=== PATIENT | male | born 1985 | race Caucasian/White ===

== ENCOUNTER 2016-09-18 08:51 | Inpatient (IN) | payer OTHER ==
[2016-09-18 10:30] VITALS: BMI 26.5
--- NOTE | 2016-09-18 13:57 | HP ---
COWS - Scale Resting Pulse: 1= [place] 81-100 Sweatin= Chills/Flushing Restless Observation: 3= Extraneous Movement Pupil Size: 2= Moderately Dilated Bone or Joint Aches: 4=Acute Joint/Muscle Pain Runny Nose/ Eye Tearin= Nasal Congestion GI Upset > 30mins: 2= Nausea/Diarrhea Tremor Observation: 1= Tremor [place], Not Seen Yawning Observation: 1= 1-2x During Session Anxiety or Irritability: 2=Irritable/Anxious Goose Flesh Skin: 0=Smooth Skin COWS Score: 18 CIWA Score - CIWA Score Nausea/Vomitin (NAUSEA/DIARHEA) Muscle Tremors: 3 Anxiety: 4-Mod. Anxious/Guarded Agitation: 4-Moderately Restless Paroxysmal Sweats: 1-Minimal Palms Moist Orientation: 0-Oriented Tacttile Disturbances: 3-Moderate Itch/Numb/Burn Auditory Disturbances: 0-None Visual Disturbances: 0-None Headache: 0-None Present CIWA-Ar Total Score: 18 Admission ROS S - HPI Chief Complaint: DETOX TX FOR HEROIN AND ALCOHOL DEPENDENCE Allergies/Adverse Reactions: Allergies Allergy/AdvReac Type Severity Reaction Status Date / Time No Known Allergies Allergy Verified 09/18/16 10:55 History of Present Illness: 31 Y/O [facility] WITH A HX OF HEROIN,COCAINE AND ALCOHOL DEPENDENCE SEEKING DETOX TX. ALSO STATES XANAX HABIT 3X/WEEK BUT TOXICOLY NEGATIVE FOR BENZO TODAY. - Ebola screening Have you traveled outside of the country in the last 21 days: No Have you had contact with anyone from an Ebola affected area: No Have you been sick,other than usual withdrawal symptoms: No Do you have a fever: No - Review of Systems Constitutional: Chills, Night Sweats EENT: reports: No Symptoms Reported Respiratory: reports: No Symptoms reported Cardiac: reports: No Symptoms Reported GI: reports: Diarrhea, Nausea, Indigestion, Abdominal cramping : reports: Dysuria Musculoskeletal: reports: Back Pain, Joint Pain, Muscle Pain Integumentary: reports: Bruising (IVD INJ SITE LEFT ELBOW) Neuro: reports: Headache, Numbness, Tingling, Tremors, Unsteady Gait Endocrine: reports: No Symptoms Reported Hematology: reports: No Symptoms Reported Psychiatric: reports: Orientated x3, Anxious, Depressed Other Systems: Reviewed and Negative Patient History - Patient Medical History Hx Anemia: No Hx Asthma: No Hx Chronic Obstructive Pulmonary Disease (COPD): No Hx Cancer: No Hx Cardiac Disorders: No Hx Congestive Heart Failure: No Hx Hypertension: No Hx Hypercholesterolemia: No Hx Pacemaker: No HX Cerebrovascular Accident: No Hx Seizures: No Hx Dementia: No Hx Diabetes: No Hx Gastrointestinal Disorders: No Hx Liver Disease: No Hx Genitourinary Disorders: No Hx Sexually Transmitted Disorders: No Hx Renal Disease (ESRD): No Hx Thyroid Disease: No Hx Human Immunodeficiency Virus (HIV): No (NEGATIVE HX) Hx Hepatitis C: No Hx Depression: Yes (ON MED) Hx Suicide Attempt: No (DENIES) Hx Bipolar Disorder: No Hx Schizophrenia: No - Patient Surgical History Past Surgical History: No Hx Neurologic Surgery: No Hx Cataract Extraction: No Hx Cardiac Surgery: No Hx Lung Surgery: No Hx Breast Surgery: No Hx Breast Biopsy: No Hx Abdominal Surgery: No Hx Appendectomy: No Hx Cholecystectomy: No Hx Genitourinary Surgery: No Hx Orthopedic Surgery: No Anesthesia Reaction: No - PPD History Previous Implant?: Yes Documented Results: Negative w/proof Implanted On Prior [facility] Admission?: Yes Date: 10/08/14 Results: 0mm PPD to be Administered?: Yes - Reproductive History Patient is a Female of Child Bearing Age (11 -55 yrs old): No (MALE) Patient : (N/A) - Smoking Cessation Smoking history: Current every day smoker Have you smoked in the past 12 months: Yes Aproximately how many cigarettes per day: 10 Cigars Per Day: 0 Hx Chewing Tobacco Use: No Initiated information on smoking cessation: Yes 'Breaking Loose' booklet given: 09/18/16 - Substance & Tx. History Hx Alcohol Use: Yes (BEER/WHISKEY) Hx Substance Use: Yes (HEROIN/COCAINE) Substance Use Type: Alcohol, Cocaine, Heroin, Tranquilizers Hx Substance Use Treatment: Yes (LAST TX AT [facility]) - Substances Abused Alcohol Route: Oral Frequency: Daily Amount used: kera elder(1 pint)/beer-6-12 24 oz cans) Age of first use: 12 Date of Last Use: 09/18/16 Heroin Route: Injection Frequency: Daily Amount used: 3-10 bags Age of first use: 23 Date of Last Use: 09/18/16 Cocaine Route: Injection Frequency: Daily Amount used: $30-100 Age of first use: 20 Date of Last Use: 09/17/16 Family Disease History - Family Disease History Family Disease History: Other: Grandparent (GF WAN ADDICTED TO ETOH) Admission Physical Exam [facility] - Vital Signs Vital Signs: Vital Signs - 24 hr 09/18/16 10:28 Temperature 97.6 F Pulse Rate 81 Respiratory 20 Rate Blood Pressure 147/90 - Physical General Appearance: Yes: Moderate Distress, Alcohol on Breath, Intoxicated, Irritable, Anxious HEENTM: Yes: EOMI, MAGGI, Pharynx Normal Respiratory: Yes: Chest Non-Tender, Lungs Clear, Normal Breath Sounds, No Respiratory Distress Neck: Yes: No masses,lesions,Nodules, Supple, Trachea in good position Breast: Yes: Breast Exam Deferred Cardiology: Yes: Regular Rhythm, Regular Rate, S1, S2 Abdominal: Yes: Normal Bowel Sounds, Non Tender, Soft Genitourinary: Yes: Other Back: Yes: Within Normal Limits Musculoskeletal: Yes: full range of Motion, Gait Steady Extremities: Yes: Normal Range of Motion, Non-Tender Neurological: Yes: braided rug maker II-XII NML intact, Fully Oriented, Alert Integumentary: Yes: Dry, Warm, Track [place] (LEFT ELBOW) Lymphatic: Yes: Within Normal Limits - Diagnostic (1) Nicotine dependence Current Visit: Yes Status: Acute Qualifiers: Nicotine product type: cigarettes Substance use status: in withdrawal Qualified Code(s): F17.213 - Nicotine dependence, cigarettes, with withdrawal (2) Opioid dependence with withdrawal Current Visit: Yes Status: Acute (3) Cocaine dependence, uncomplicated Current Visit: Yes Status: Acute (4) Alcohol dependence with uncomplicated withdrawal Current Visit: Yes Status: Acute (5) Multiple abrasions Current Visit: Yes Status: Acute Comment: ON BOTH LOWER EXTREMITIES--SCRATCHES DUE TO MOSQUITO BITES PER PT. Cleared for Admission [facility] - Detox or Rehab [facility] Level of Care: Medically Managed Detox Regimen/Protocol: Methadone/Librium [facility] Breath Alcohol Content Breath Alcohol Content: 0.130 Urine Drug Screen - Results Drug Screen Negative: No Urine Drug Screen Results: YANELIS-Cocaine, OPI-Opiates
[2016-09-18] MEDS ORDERED: ACETAMINOPHEN 325 MG TABLET (FP) PO PRN (14:31)
[2016-09-18] MEDS ORDERED: diphenhydrAMINE HCL 50 MG CAPSULE PO PRN (14:31)
[2016-09-18] MEDS ORDERED: hydrOXYzine PAMOATE 50 MG CAPSULE (FP) PO PRN (14:31)
[2016-09-18] MEDS ORDERED: chlordiazePOXIDE HCL 25 MG CAPSULE PO ONE (14:31)
[2016-09-18] MEDS ORDERED: MAGNESIUM HYDROX 2400MG/30ML ORAL SUSPENSION 30 ML CUP PO PRN (14:31)
[2016-09-18] MEDS ORDERED: MAGNESIUM CITRATE 300 ML BOTTLE PO PRN (14:31)
[2016-09-18] MEDS ORDERED: P-EPHED 60MG/TRIPROLIDI 2.5MG TABLET PO PRN (14:31)
[2016-09-18] MEDS ORDERED: LOPERAMIDE HCL 2 MG CAPSULE PO PRN (14:31)
[2016-09-18] MEDS ORDERED: guaiFENesin/D-METHORPHAN HB 10 ML UNIT-DOSE CUPS PO PRN (14:31)
[2016-09-18] MEDS ORDERED: MENTHOL/PHENOL 1 EACH UD MM PRN (14:31)
[2016-09-18] MEDS ORDERED: MAG HYDROX/AL HYDROX/SIMETH 30 ML UNIT-DOSE CUP PO PRN (14:31)
[2016-09-18] MEDS ORDERED: IBUPROFEN 400 MG TABLET (FP) PO PRN (14:31)
[2016-09-18 16:57] LABS: MCH 28.2 pg (25.7-33.7); MCHC 33.5 g/dl (32.0-35.9); MEAN CELL VOLUME 84.2 fl (80-96); PLATELET COUNT 321 K/MM3 (134-434); RDW 15.9 % (11.9-15.9); WHITE BLOOD COUNT 8.9 K/mm3 (4.0-10.0)
[2016-09-18] MEDS ORDERED: METHADONE HCL 10 MG TABLET (FOR DETOX USE ONLY) PO ONE ×2 (17:00→23:00)
[2016-09-18] MEDS: chlordiazePOXIDE HCL 25 MG CAPSULE PO SCH ×2 (17:05→22:30)
[2016-09-18] MEDS: NICOTINE 14 MG/24 HOURS TOPICAL PATCH TD SCH (17:09)
[2016-09-18 17:12] LABS: ALBUMIN 3.8 g/dl (3.4-5.0); ANION GAP 10 (8-16); BILIRUBIN,TOTAL 0.6 mg/dL (0.2-1.0); CALCIUM 9.1 mg/dL (8.5-10.1); CO2 24 mmol/L (21-32); CREATININE 0.9 mg/dL (0.7-1.3); GLUCOSE,RANDOM 124 mg/dL (74-106); SGOT/AST 27 U/L (15-37); TOT PROT 7.5 g/dl (6.4-8.2)
[2016-09-18 17:17] LABS: ALK PHOS 147 U/L (45-117); SGPT/ALT 111 U/L (12-78)
--- NOTE | 2016-09-18 19:08 | CONSULT ---
[facility] Psychiatric Consult - Data Date of interview: 09/18/16 Admission source: [facility] Identifying data: Readmission to [facility] for this 31 y/o male seeking detox treatment on for heroin,cocaine and alcohol dependence.Patient is single without children,homeless,unemployed and supported on Public Assistance. Substance Abuse History: Discussed in this interview.Mr Cuello confirms this report provide at [facility] on admission. Smoking Cessation. Smoking history: Current every day smoker. Have you smoked in the past 12 months: Yes. Aproximately how many cigarettes per day: 10. Cigars Per Day: 0. Hx Chewing Tobacco Use: No. Initiated information on smoking cessation: Yes. 'Breaking Loose' booklet given: 09/18/16. - Substance & Tx. History. Hx Alcohol Use: Yes (BEER/WHISKEY). Hx Substance Use: Yes (HEROIN/COCAINE). Substance Use Type : Alcohol, Cocaine, Heroin, Tranquilizers. Hx Substance Use Treatment: Yes ( LAST TX AT [facility]). - Substances Abused. Alcohol. Route: Oral. Frequency: Daily. Amount used: kera elder(1 pint)/beer-6-12 24 oz cans). Age of first use: 12. Date of Last Use: 09/18/16. Heroin. Route: Injection. Frequency: Daily. Amount used: 3-10 bags. Age of first use: 23. Date of Last Use: 09/18/16. Cocaine. Route: Injection. Frequency: Daily. Amount used: $30-100. Age of first use: 20. Date of Last Use: 09/17/16 Medical History: Patient endorses good general health. Psychiatric History: Appears to be an unconcerned historian.Clearly in denial of the seriousness of his addictions.Mr Cuello remains vague about past history of OPD care." I used to be on wellbutrin,xanax,lexapro and some other things.They don't work and I stopped taking them.I am fine and,frankly,I don't see the need to go to psychiatrists." Patient denies history of psychiatric hospitalizations or suicide atttempts. Physical/Sexual Abuse/Trauma History: Patient denies. Additional Comment: Urine Drug Screen Results: YANELIS-Cocaine, OPI-Opiates.Noted. Mental Status Exam - Mental Status Exam Alert and Oriented to: Time, Place, Person Cognitive Function: Good Patient Appearance: Well Groomed Mood: Euthymic Affect: Normal Range Patient Behavior: Fatigued, Appropriate, Cooperative Speech Pattern: Clear Voice Loudness: Normal Thought Process: Goal Oriented Thought Disorder: Not Present Hallucinations: Denies Suicidal Ideation: Denies Homicidal Ideation: Denies Insight/Judgement: Poor Sleep: Poorly, Difficulty falling asleep Appetite: Good Muscle strength/Tone: Normal Gait/Station: Normal Psychiatric Findings - Problem List ([place] 1, 2,3) (1) Alcohol dependence with uncomplicated withdrawal Current Visit: Yes Status: Acute (2) Cocaine dependence, uncomplicated Current Visit: Yes Status: Acute (3) Opioid dependence with withdrawal Current Visit: Yes Status: Acute (4) Nicotine dependence Current Visit: Yes Status: Acute Qualifiers: Nicotine product type: cigarettes Substance use status: in withdrawal Qualified Code(s): F17.213 - Nicotine dependence, cigarettes, with withdrawal (5) Drug-induced mood disorder Current Visit: Yes Status: Chronic (6) Insomnia Current Visit: Yes Status: Acute - Initial Treatment Plan Initial Treatment Plan: Psychoeducation.Detoxification.Ambien 10 mg po hs prn.Side effects/benefits discussed with the patient.Consent (verbal) given fr this careplan.Observation.
[2016-09-18 21:14] LABS: URINE APPEARANCE CLEAR; URINE BILIRUBIN NEGATIVE (NEGATIVE); URINE BLOOD NEGATIVE (NEGATIVE); URINE COLOR COLORLESS; URINE GLUCOSE (UA) NEGATIVE (NEGATIVE); URINE KETONE NEGATIVE (NEGATIVE); URINE LEUK ESTERASE NEGATIVE (NEGATIVE); URINE NITRITE NEGATIVE (NEGATIVE); URINE PROTEIN NEGATIVE (NEGATIVE); URINE UROBILINOGEN NEGATIVE mg/dL (0.2-1.0)
[2016-09-18] MEDS: ZOLPIDEM TARTRATE 5 MG TABLET PO PRN (22:30)
[2016-09-18] MEDS: THIAMINE HCL 100 MG TABLET (FP) PO SCH (22:49)
[2016-09-19 02:23] LABS: HIV 1 & 2 AB NEGATIVE; HIV 1 AGp24 NEGATIVE
[2016-09-19] MEDS: chlordiazePOXIDE HCL 25 MG CAPSULE PO SCH ×4 (05:49→22:17)
[2016-09-19] MEDS ORDERED: METHADONE HCL 10 MG TABLET (FOR DETOX USE ONLY) PO SCH (10:00)
[2016-09-19] MEDS: PRENATAL VITAMINS W/ FOLIC ACID TABLET (FP) PO SCH (11:00)
[2016-09-19] MEDS: NICOTINE 14 MG/24 HOURS TOPICAL PATCH TD SCH (11:00)
--- NOTE | 2016-09-19 11:01 | PN ---
[facility] CIWA - CIWA Score Nausea/Vomitin-No Nausea/No Vomiting Muscle Tremors: 4-Moderate,w/Arms Extend Anxiety: 4-Mod. Anxious/Guarded Agitation: 3 Paroxysmal Sweats: 3 Orientation: 0-Oriented Tacttile Disturbances: 0-None Auditory Disturbances: 0-None Visual Disturbances: 0-None Headache: 0-None Present CIWA-Ar Total Score: 14 S COWS - Scale Resting Pulse: 0= [place] 80 or Below Sweatin=Flushed/Facial Moisture Restless Observation: 1= Difficult to Sit Still Pupil Size: 0= Normal to Room Light Bone or Joint Aches: 1= Mild Discomfort Runny Nose/ Eye Tearin= Runny Nose/Eyes GI Upset > 30mins: 2= Nausea/Diarrhea Tremor Observation of Outstretched Hands: 2= Slight Tremor Visible Yawning Observation: 1= 1-2x During Session Anxiety or Irritability: 2=Irritable/Anxious Goose Flesh Skin: 0=Smooth Skin COWS Score: 13 [facility] Progress Note (SOAP) Subjective: Anxiety,tremors,sweating,muscle aches,interrupted sleep,restless Objective: 09/19/16 11:00 Vital Signs - 8 hr 09/19/16 09/19/16 09/19/16 04:18 06:42 09:21 Temperature 96.2 F L 97.7 F Pulse Rate 66 72 Respiratory 18 18 18 Rate Blood Pressure 149/87 142/77 Laboratory Last Values WBC 8.9 K/mm3 (4.0-10.0) D 09/18/16 14:00 RBC 5.16 M/mm3 (4.00-5.60) 09/18/16 14:00 Hgb 14.6 GM/dL (11.7-16.9) 09/18/16 14:00 Hct 43.4 % (35.4-49) 09/18/16 14:00 MCV 84.2 fl (80-96) 09/18/16 14:00 MCH 28.2 pg (25.7-33.7) 09/18/16 14:00 MCHC 33.5 g/dl (32.0-35.9) 09/18/16 14:00 RDW 15.9 % (11.9-15.9) 09/18/16 14:00 Plt Count 321 K/MM3 (134-434) D 09/18/16 14:00 MPV 9.0 fl (7.5-11.1) 09/18/16 14:00 Sodium 140 mmol/L (136-145) 09/18/16 14:00 Potassium 4.3 mmol/L (3.5-5.1) 09/18/16 14:00 Chloride 106 mmol/L (98-107) 09/18/16 14:00 Carbon Dioxide 24 mmol/L (21-32) 09/18/16 14:00 Anion Gap 10 (8-16) 09/18/16 14:00 BUN 5 mg/dL (7-18) L D 09/18/16 14:00 Creatinine 0.9 mg/dL (0.7-1.3) D 09/18/16 14:00 Creat Clearance w eGFR > 60 (>60) 09/18/16 14:00 Random Glucose 124 mg/dL (74-106) H D 09/18/16 14:00 Calcium 9.1 mg/dL (8.5-10.1) 09/18/16 14:00 Total Bilirubin 0.6 mg/dL (0.2-1.0) D 09/18/16 14:00 AST 27 U/L (15-37) D 09/18/16 14:00 ALT 111 U/L (12-78) H D 09/18/16 14:00 Alkaline Phosphatase 147 U/L (45-117) H D 09/18/16 14:00 Total Protein 7.5 g/dl (6.4-8.2) 09/18/16 14:00 Albumin 3.8 g/dl (3.4-5.0) 09/18/16 14:00 Urine Color Colorless 09/18/16 16:58 Urine Appearance Clear 09/18/16 16:58 Urine pH 6.0 (5.0-8.0) 09/18/16 16:58 Ur Specific [place] <= 1.005 (1.005-1.025) 09/18/16 16:58 Urine Protein Negative (NEGATIVE) 09/18/16 16:58 Urine Glucose (UA) Negative (NEGATIVE) 09/18/16 16:58 Urine Ketones Negative (NEGATIVE) 09/18/16 16:58 Urine Blood Negative (NEGATIVE) 09/18/16 16:58 Urine Nitrite Negative (NEGATIVE) 09/18/16 16:58 Urine Bilirubin Negative (NEGATIVE) 09/18/16 16:58 Urine Urobilinogen Negative mg/dL (0.2-1.0) 09/18/16 16:58 Ur Leukocyte Esterase Negative (NEGATIVE) 09/18/16 16:58 HIV 1&2 Antibody Screen Negative 09/18/16 12:00 HIV P24 Antigen Negative 09/18/16 12:00 labs noted Assessment: 09/19/16 11:00 Withdrawal sx. Plan: continue detox
[2016-09-19] MEDS: NICOTINE POLACRILEX 2 MG GUM BC PRN ×4 (11:02→18:59)
[2016-09-19] MEDS: BACITRACIN 0.9 GM PACKET TP SCH (14:05)
[2016-09-19] MEDS: chlordiazePOXIDE HCL 25 MG CAPSULE PO PRN ×2 (14:06→18:59)
--- NOTE | 2016-09-19 15:38 | EKG ---
Test Reason : Blood Pressure : / mmHG Vent. Rate : 086 BPM Atrial Rate : 086 BPM P-R Int : 148 ms QRS Dur : 084 ms QT Int : 358 ms P-R-T Axes : 053 073 042 degrees QTc Int : 428 ms NORMAL SINUS RHYTHM WITH SINUS ARRHYTHMIA NORMAL ECG NO PREVIOUS ECGS AVAILABLE Confirmed by JOSHUA OVERTON, SANDRA ([id number]) on 09/19/2016 3:38:14 PM Referred By: Confirmed By:SANDRA LEWIS MD
[2016-09-19] MEDS: THIAMINE HCL 100 MG TABLET (FP) PO SCH (22:18)
[2016-09-19] MEDS: ZOLPIDEM TARTRATE 5 MG TABLET PO PRN (22:18)
[2016-09-20] MEDS: chlordiazePOXIDE HCL 25 MG CAPSULE PO SCH ×2 (05:30→10:27)
[2016-09-20] MEDS: NICOTINE POLACRILEX 2 MG GUM BC PRN ×3 (06:59→16:50)
[2016-09-20] MEDS: PRENATAL VITAMINS W/ FOLIC ACID TABLET (FP) PO SCH (10:27)
[2016-09-20] MEDS: METHADONE HCL 5 MG TABLET (FOR DETOX USE ONLY) PO SCH (10:27)
[2016-09-20] MEDS: BACITRACIN 0.9 GM PACKET TP SCH (10:27)
[2016-09-20] MEDS: NICOTINE 14 MG/24 HOURS TOPICAL PATCH TD SCH (10:27)
--- NOTE | 2016-09-20 12:05 | PN ---
S CIWA - CIWA Score Nausea/Vomitin Muscle Tremors: 3 Anxiety: 1-Mildly Anxious Agitation: 3 Paroxysmal Sweats: 3 Orientation: 0-Oriented Tacttile Disturbances: 3-Moderate Itch/Numb/Burn Auditory Disturbances: 0-None Visual Disturbances: 1-Very Mild Sensitivity Headache: 0-None Present CIWA-Ar Total Score: 16 [facility] COWS - Scale Resting Pulse: 0= [place] 80 or Below Sweatin= Chills/Flushing Restless Observation: 1= Difficult to Sit Still Pupil Size: 0= Normal to Room Light Bone or Joint Aches: 2= Severe Diffuse Aches Runny Nose/ Eye Tearin= Nasal Congestion GI Upset > 30mins: 2= Nausea/Diarrhea Tremor Observation of Outstretched Hands: 2= Slight Tremor Visible Yawning Observation: 1= 1-2x During Session Anxiety or Irritability: 2=Irritable/Anxious Goose Flesh Skin: 3=Piloerection COWS Score: 15 [facility] Progress Note (SOAP) Subjective: Tremors, Stomach Cramping, Body Aches, Sweating, Diarrhea. Objective: PT. A & O X 3, OBSERVED AMBULATING ON UNIT. NO ACUTE DISTRESS. 09/20/16 12:04 Vital Signs Temperature 96.8 F L 09/20/16 10:46 Pulse Rate 70 09/20/16 10:46 Respiratory Rate 18 09/20/16 10:46 Blood Pressure 145/86 09/20/16 10:46 O2 Sat by Pulse Oximetry (%) Laboratory Tests 09/18/16 09/18/16 09/18/16 12:00 14:00 14:00 WBC 8.9 D RBC 5.16 Hgb 14.6 Hct 43.4 MCV 84.2 MCH 28.2 MCHC 33.5 RDW 15.9 Plt Count 321 D MPV 9.0 Sodium 140 Potassium 4.3 Chloride 106 Carbon Dioxide 24 Anion Gap 10 BUN 5 L D Creatinine 0.9 D Creat Clearance w eGFR > 60 POC Glucometer Random Glucose 124 H D Calcium 9.1 Total Bilirubin 0.6 D AST 27 D ALT 111 H D Alkaline Phosphatase 147 H D Total Protein 7.5 Albumin 3.8 Urine Color Urine Appearance Urine pH Ur Specific [place] Urine Protein Urine Glucose (UA) Urine Ketones Urine Blood Urine Nitrite Urine Bilirubin Urine Urobilinogen Ur Leukocyte Esterase RPR Titer HIV 1&2 Antibody Screen Negative HIV P24 Antigen Negative 09/18/16 09/18/16 09/20/16 14:00 16:58 05:32 WBC RBC Hgb Hct MCV MCH MCHC RDW Plt Count MPV Sodium Potassium Chloride Carbon Dioxide Anion Gap BUN Creatinine Creat Clearance w eGFR POC Glucometer 88 Random Glucose Calcium Total Bilirubin AST ALT Alkaline Phosphatase Total Protein Albumin Urine Color Colorless Urine Appearance Clear Urine pH 6.0 Ur Specific [place] <= 1.005 Urine Protein Negative Urine Glucose (UA) Negative Urine Ketones Negative Urine Blood Negative Urine Nitrite Negative Urine Bilirubin Negative Urine Urobilinogen Negative Ur Leukocyte Esterase Negative RPR Titer Nonreactive HIV 1&2 Antibody Screen HIV P24 Antigen LABS NOTED. Assessment: 09/20/16 12:04 WITHDRAWAL SYMPTOMS. Plan: CONTINUE DETOX.
[2016-09-20] MEDS: chlordiazePOXIDE HCL 25 MG CAPSULE PO PRN (12:32)
[2016-09-20] MEDS: chlordiazePOXIDE 5 MG CAPSULE PO SCH ×2 (16:47→22:15)
[2016-09-20] MEDS: ZOLPIDEM TARTRATE 5 MG TABLET PO PRN (22:15)
[2016-09-20] MEDS: THIAMINE HCL 100 MG TABLET (FP) PO SCH (22:15)
[2016-09-21] MEDS: chlordiazePOXIDE 5 MG CAPSULE PO SCH ×2 (05:30→10:17)
[2016-09-21] MEDS: chlordiazePOXIDE HCL 25 MG CAPSULE PO PRN ×2 (08:36→12:28)
[2016-09-21] MEDS: BACITRACIN 0.9 GM PACKET TP SCH (10:17)
[2016-09-21] MEDS: NICOTINE POLACRILEX 2 MG GUM BC PRN ×3 (10:17→17:32)
[2016-09-21] MEDS: NICOTINE 14 MG/24 HOURS TOPICAL PATCH TD SCH (10:17)
[2016-09-21] MEDS: METHADONE HCL 5 MG TABLET (FOR DETOX USE ONLY) PO SCH (10:17)
[2016-09-21] MEDS: PRENATAL VITAMINS W/ FOLIC ACID TABLET (FP) PO SCH (10:17)
--- NOTE | 2016-09-21 15:01 | PN ---
[facility] Progress Note (SOAP) Subjective: Tremors, Stomach Cramping, Diarrhea, Body Aches, Seating. Objective: PT. A & O X 3, OBSERVED AMBULATING ON UNIT. NO ACUTE DISTRESS. 09/21/16 15:00 Vital Signs Temperature 96.7 F L 09/21/16 13:57 Pulse Rate 66 09/21/16 13:57 Respiratory Rate 18 09/21/16 13:57 Blood Pressure 138/84 09/21/16 13:57 O2 Sat by Pulse Oximetry (%) Laboratory Tests 09/18/16 09/18/16 09/18/16 12:00 14:00 14:00 WBC 8.9 D RBC 5.16 Hgb 14.6 Hct 43.4 MCV 84.2 MCH 28.2 MCHC 33.5 RDW 15.9 Plt Count 321 D MPV 9.0 Sodium 140 Potassium 4.3 Chloride 106 Carbon Dioxide 24 Anion Gap 10 BUN 5 L D Creatinine 0.9 D Creat Clearance w eGFR > 60 POC Glucometer Random Glucose 124 H D Calcium 9.1 Total Bilirubin 0.6 D AST 27 D ALT 111 H D Alkaline Phosphatase 147 H D Total Protein 7.5 Albumin 3.8 Urine Color Urine Appearance Urine pH Ur Specific [place] Urine Protein Urine Glucose (UA) Urine Ketones Urine Blood Urine Nitrite Urine Bilirubin Urine Urobilinogen Ur Leukocyte Esterase RPR Titer HIV 1&2 Antibody Screen Negative HIV P24 Antigen Negative 09/18/16 09/18/16 09/20/16 14:00 16:58 05:32 WBC RBC Hgb Hct MCV MCH MCHC RDW Plt Count MPV Sodium Potassium Chloride Carbon Dioxide Anion Gap BUN Creatinine Creat Clearance w eGFR POC Glucometer 88 Random Glucose Calcium Total Bilirubin AST ALT Alkaline Phosphatase Total Protein Albumin Urine Color Colorless Urine Appearance Clear Urine pH 6.0 Ur Specific [place] <= 1.005 Urine Protein Negative Urine Glucose (UA) Negative Urine Ketones Negative Urine Blood Negative Urine Nitrite Negative Urine Bilirubin Negative Urine Urobilinogen Negative Ur Leukocyte Esterase Negative RPR Titer Nonreactive HIV 1&2 Antibody Screen HIV P24 Antigen LABS NOTED. Assessment: 09/21/16 15:00 WITHDRAWAL SYMPTOMS. Plan: CONTINUE DETOX.
[2016-09-21] MEDS: chlordiazePOXIDE HCL 10 MG CAPSULE PO SCH ×2 (17:32→22:22)
[2016-09-21] MEDS: THIAMINE HCL 100 MG TABLET (FP) PO SCH (22:22)
[2016-09-21] MEDS: ZOLPIDEM TARTRATE 5 MG TABLET PO PRN (22:22)
[2016-09-22] MEDS: chlordiazePOXIDE HCL 10 MG CAPSULE PO SCH ×2 (05:46→10:30)
[2016-09-22] MEDS ORDERED: METHADONE HCL 10 MG TABLET (FOR DETOX USE ONLY) PO SCH (10:00)
[2016-09-22] MEDS: BACITRACIN 0.9 GM PACKET TP SCH (10:30)
[2016-09-22] MEDS: PRENATAL VITAMINS W/ FOLIC ACID TABLET (FP) PO SCH (10:30)
[2016-09-22] MEDS: NICOTINE 14 MG/24 HOURS TOPICAL PATCH TD SCH (10:30)
[2016-09-22] MEDS: NICOTINE POLACRILEX 2 MG GUM BC PRN ×3 (10:30→20:10)
--- NOTE | 2016-09-22 16:10 | PN ---
S Progress Note (SOAP) Subjective: Sweating, anxious, interrupted sleep Objective: 09/22/16 16:09 Last Vital Signs Temp Pulse Resp BP Pulse Ox 97.3 F L 86 18 138/79 09/22/16 14:25 09/22/16 14:25 09/22/16 14:25 09/22/16 14:25 Laboratory Tests 09/18/16 09/18/16 09/18/16 12:00 14:00 14:00 WBC 8.9 D RBC 5.16 Hgb 14.6 Hct 43.4 MCV 84.2 MCH 28.2 MCHC 33.5 RDW 15.9 Plt Count 321 D MPV 9.0 Sodium 140 Potassium 4.3 Chloride 106 Carbon Dioxide 24 Anion Gap 10 BUN 5 L D Creatinine 0.9 D Creat Clearance w eGFR > 60 POC Glucometer Random Glucose 124 H D Calcium 9.1 Total Bilirubin 0.6 D AST 27 D ALT 111 H D Alkaline Phosphatase 147 H D Total Protein 7.5 Albumin 3.8 Urine Color Urine Appearance Urine pH Ur Specific [place] Urine Protein Urine Glucose (UA) Urine Ketones Urine Blood Urine Nitrite Urine Bilirubin Urine Urobilinogen Ur Leukocyte Esterase RPR Titer HIV 1&2 Antibody Screen Negative HIV P24 Antigen Negative 09/18/16 09/18/16 09/20/16 14:00 16:58 05:32 WBC RBC Hgb Hct MCV MCH MCHC RDW Plt Count MPV Sodium Potassium Chloride Carbon Dioxide Anion Gap BUN Creatinine Creat Clearance w eGFR POC Glucometer 88 Random Glucose Calcium Total Bilirubin AST ALT Alkaline Phosphatase Total Protein Albumin Urine Color Colorless Urine Appearance Clear Urine pH 6.0 Ur Specific [place] <= 1.005 Urine Protein Negative Urine Glucose (UA) Negative Urine Ketones Negative Urine Blood Negative Urine Nitrite Negative Urine Bilirubin Negative Urine Urobilinogen Negative Ur Leukocyte Esterase Negative RPR Titer Nonreactive HIV 1&2 Antibody Screen HIV P24 Antigen Labs noted Assessment: 09/22/16 16:10 Withdrawal symptoms Plan: Continue detox Encouraged to drink lots of water
[2016-09-22] MEDS: ZOLPIDEM TARTRATE 5 MG TABLET PO PRN (22:28)
[2016-09-22] MEDS: THIAMINE HCL 100 MG TABLET (FP) PO SCH (22:28)
[2016-09-23] MEDS ORDERED: METHADONE HCL 5 MG TABLET (FOR DETOX USE ONLY) PO SCH (06:00)
[2016-09-23 06:35] VITALS: BP 132/87; PULSE 74; TEMP 96.7
--- NOTE | 2016-09-23 09:04 | DS ---
[facility] Detox Discharge Summary Admission Date: 09/18/16 Discharge Date: 09/23/16 - History Present History: Alcohol Dependence, Cocaine Dependence, Opioid Dependence Pertinent Past History: Multiple abrasion - Physical Exam Results Vital Signs: Vital Signs Temperature 96.7 F L 09/23/16 06:35 Pulse Rate 74 09/23/16 06:35 Respiratory Rate 18 09/23/16 06:35 Blood Pressure 132/87 09/23/16 06:35 O2 Sat by Pulse Oximetry (%) Pertinent Admission Physical Exam Findings: Withdrawal sx. Laboratory Last Values WBC 8.9 K/mm3 (4.0-10.0) D 09/18/16 14:00 RBC 5.16 M/mm3 (4.00-5.60) 09/18/16 14:00 Hgb 14.6 GM/dL (11.7-16.9) 09/18/16 14:00 Hct 43.4 % (35.4-49) 09/18/16 14:00 MCV 84.2 fl (80-96) 09/18/16 14:00 MCH 28.2 pg (25.7-33.7) 09/18/16 14:00 MCHC 33.5 g/dl (32.0-35.9) 09/18/16 14:00 RDW 15.9 % (11.9-15.9) 09/18/16 14:00 Plt Count 321 K/MM3 (134-434) D 09/18/16 14:00 MPV 9.0 fl (7.5-11.1) 09/18/16 14:00 Sodium 140 mmol/L (136-145) 09/18/16 14:00 Potassium 4.3 mmol/L (3.5-5.1) 09/18/16 14:00 Chloride 106 mmol/L (98-107) 09/18/16 14:00 Carbon Dioxide 24 mmol/L (21-32) 09/18/16 14:00 Anion Gap 10 (8-16) 09/18/16 14:00 BUN 5 mg/dL (7-18) L D 09/18/16 14:00 Creatinine 0.9 mg/dL (0.7-1.3) D 09/18/16 14:00 Creat Clearance w eGFR > 60 (>60) 09/18/16 14:00 POC Glucometer 88 UNITS (()) 09/20/16 05:32 Random Glucose 124 mg/dL (74-106) H D 09/18/16 14:00 Calcium 9.1 mg/dL (8.5-10.1) 09/18/16 14:00 Total Bilirubin 0.6 mg/dL (0.2-1.0) D 09/18/16 14:00 AST 27 U/L (15-37) D 09/18/16 14:00 ALT 111 U/L (12-78) H D 09/18/16 14:00 Alkaline Phosphatase 147 U/L (45-117) H D 09/18/16 14:00 Total Protein 7.5 g/dl (6.4-8.2) 09/18/16 14:00 Albumin 3.8 g/dl (3.4-5.0) 09/18/16 14:00 Urine Color Colorless 09/18/16 16:58 Urine Appearance Clear 09/18/16 16:58 Urine pH 6.0 (5.0-8.0) 09/18/16 16:58 Ur Specific [place] <= 1.005 (1.005-1.025) 09/18/16 16:58 Urine Protein Negative (NEGATIVE) 09/18/16 16:58 Urine Glucose (UA) Negative (NEGATIVE) 09/18/16 16:58 Urine Ketones Negative (NEGATIVE) 09/18/16 16:58 Urine Blood Negative (NEGATIVE) 09/18/16 16:58 Urine Nitrite Negative (NEGATIVE) 09/18/16 16:58 Urine Bilirubin Negative (NEGATIVE) 09/18/16 16:58 Urine Urobilinogen Negative mg/dL (0.2-1.0) 09/18/16 16:58 Ur Leukocyte Esterase Negative (NEGATIVE) 09/18/16 16:58 RPR Titer Nonreactive (NONREACTIVE) 09/18/16 14:00 HIV 1&2 Antibody Screen Negative 09/18/16 12:00 HIV P24 Antigen Negative 09/18/16 12:00 labs noted - Treatment Hospital Course: Detox Protocol Followed, Detoxed Safely, Responded well, Discharged Condition Good, Rehab Referral Accepted Patient has Accepted a Rehab Referral to: [facility] Rehab - Medication Discharge Medications: Ambulatory Orders NK [No Known Home Medication] 09/18/16 - Diagnosis (1) Alcohol dependence with uncomplicated withdrawal Current Visit: Yes Status: Acute (2) Cocaine dependence, uncomplicated Current Visit: Yes Status: Acute (3) Insomnia Current Visit: Yes Status: Acute (4) Multiple abrasions Current Visit: Yes Status: Acute (5) Nicotine dependence Current Visit: Yes Status: Acute Qualifiers: Nicotine product type: cigarettes Substance use status: in withdrawal Qualified Code(s): F17.213 - Nicotine dependence, cigarettes, with withdrawal (6) Opioid dependence with withdrawal Current Visit: Yes Status: Acute (7) Drug-induced mood disorder Current Visit: Yes Status: Chronic - AMA Did Patient Leave Against Medical Advice: No
== END 2016-09-23 08:58 | disposition home or self-care (01) | DRG 773 ==
LOC: YASAS 08:51 → Y3N 15:55
PROVIDERS: ADMIT Internal Medicine; ATTEND Internal Medicine
PROC: HZ2ZZZZ Detoxification Services for Substance Abuse Treatment (ICD-10-PCS; principal; 2016-09-18)
DX: F11.23 Opioid dependence with withdrawal (principal); F10.230 Alcohol dependence with withdrawal, uncomplicated; F14.20 Cocaine dependence, uncomplicated; F17.210 Nicotine dependence, cigarettes, uncomplicated; F19.24 Other psychoactive substance dependence with psychoactive substance-induced mood disorder; G47.00 Insomnia, unspecified; S80.862A Insect bite (nonvenomous), left lower leg, initial encounter; S80.861A Insect bite (nonvenomous), right lower leg, initial encounter; W57.XXXA Bitten or stung by nonvenomous insect and other nonvenomous arthropods, initial encounter; Y93.9 Activity, unspecified; Y92.9 Unspecified place or not applicable
CPT/HCPCS: 36415; 80053; 81003; 85027; 86593; 87389; 93005; 93010

== ENCOUNTER 2016-11-03 08:41 | Inpatient (IN) | payer OTHER ==
[2016-11-03 09:44] VITALS: BMI 25.2
--- NOTE | 2016-11-03 11:34 | HP ---
COWS - Scale Resting Pulse: 1= [place] 81-100 Sweatin= Chills/Flushing Restless Observation: 3= Extraneous Movement Pupil Size: 2= Moderately Dilated Bone or Joint Aches: 2= Severe Diffuse Aches Runny Nose/ Eye Tearin= Runny Nose/Eyes GI Upset > 30mins: 3= Vomiting/Diarrhea Tremor Observation: 2= Slight Tremor Visible Yawning Observation: 2= >3x During Session Anxiety or Irritability: 2=Irritable/Anxious Goose Flesh Skin: 0=Smooth Skin COWS Score: 20 CIWA Score - CIWA Score Nausea/Vomitin Muscle Tremors: 3 Anxiety: 3 Agitation: 3 Paroxysmal Sweats: 2 Orientation: 0-Oriented Tacttile Disturbances: 2-Mild Itch/Numbness/Burn Auditory Disturbances: 2-Mild Harshness/Frighten Visual Disturbances: 2-Mild Sensitivity Headache: 2-Mild CIWA-Ar Total Score: 22 Admission ROS BHS - HPI Chief Complaint: I NEED HELP TO STOP USING HEROIN AND ALCOHOL Allergies/Adverse Reactions: Allergies Allergy/AdvReac Type Severity Reaction Status Date / Time No Known Allergies Allergy Verified 11/03/16 09:09 History of Present Illness: THIS 31 YEARS OLD MALE WITH HEROIN AND ALCOHOL,COCAINE DEPENDENCE,SEEKING DETOX, LAST TREATMENT [facility] 09/18/16 TO 09/23/16 MULTIPLE ADMISSIONS KEEP RELAPSING LONGEST PERIOD OF SOBRIETY 6 MONTHS ON CLINDYMYCIN 300 MGS PO Q 6HRS FOR CELLULITIS LEFT CHEST Exam Limitations: No Limitations - Ebola screening Have you traveled outside of the country in the last 21 days: No Have you had contact with anyone from an Ebola affected area: No Have you been sick,other than usual withdrawal symptoms: No Do you have a fever: No - Review of Systems Constitutional: Chills, Diaphoresis, Loss of Appetite, Night Sweats, Changes in sleep, Weakness, Unintentional Wgt. Loss EENT: reports: Tearing, Nose Congestion Respiratory: reports: Cough Cardiac: reports: Palpitations GI: reports: Diarrhea, Nausea, Vomiting, Abdominal cramping : reports: No Symptoms Reported Musculoskeletal: reports: Back Pain, Joint Pain, Muscle Pain, Joint Stiffness Integumentary: reports: Dryness Neuro: reports: Headache, Tremors Endocrine: reports: No Symptoms Reported Hematology: reports: No Symptoms Reported Psychiatric: reports: No Sypmtoms Reported, Judgement Intact, Mood/Affect Appropiate, Orientated x3 Patient History - Patient Medical History Hx Anemia: No Hx Asthma: No Hx Chronic Obstructive Pulmonary Disease (COPD): No Hx Cancer: No Hx Cardiac Disorders: No Hx Congestive Heart Failure: No Hx Hypertension: No Hx Hypercholesterolemia: No Hx Pacemaker: No HX Cerebrovascular Accident: No Hx Seizures: No Hx Dementia: No Hx Diabetes: No Hx Gastrointestinal Disorders: No Hx Liver Disease: No Hx Genitourinary Disorders: No Hx Sexually Transmitted Disorders: No Hx Renal Disease (ESRD): No Hx Thyroid Disease: No Hx Human Immunodeficiency Virus (HIV): No (NEGATIVE HX LAST 09/18/16 ) Hx Hepatitis C: No Hx Depression: Yes (ON MED) Hx Suicide Attempt: No (DENIES) Hx Bipolar Disorder: No Hx Schizophrenia: No Other Medical History: ANXIETY,INSOMNIA - Patient Surgical History Past Surgical History: No Hx Neurologic Surgery: No Hx Cataract Extraction: No Hx Cardiac Surgery: No Hx Lung Surgery: No Hx Breast Surgery: No Hx Breast Biopsy: No Hx Abdominal Surgery: No Hx Appendectomy: No Hx Cholecystectomy: No Hx Genitourinary Surgery: No Hx Section: No Hx Orthopedic Surgery: No Anesthesia Reaction: No - PPD History Previous Implant?: Yes Documented Results: Negative w/proof Date: 09/20/16 Results: 0mm PPD to be Administered?: No - Smoking Cessation Smoking history: Current every day smoker Have you smoked in the past 12 months: Yes Aproximately how many cigarettes per day: 20 Cigars Per Day: 0 Hx Chewing Tobacco Use: No Initiated information on smoking cessation: Yes 'Breaking Loose' booklet given: 10/27/16 - Substance & Tx. History Hx Alcohol Use: Yes Hx Substance Use: Yes Substance Use Type: Alcohol, Heroin Hx Substance Use Treatment: Yes ([facility] 09/18/16 TO 09/23/16) - Substances Abused Alcohol Route: Oral Frequency: Daily Amount used: LIQUOR- 1 PINT, BEER- 2 SIX PACK Age of first use: 12 Date of Last Use: 11/02/16 Heroin Route: Injection Frequency: Daily Amount used: 10 BAGS Age of first use: 23 Date of Last Use: 11/02/16 Family Disease History - Family Disease History Family History: Denies Family Disease History: Other: Grandparent (GF WAN ADDICTED TO ETOH) Admission Physical Exam BHS - Vital Signs Vital Signs: Vital Signs - 24 hr 11/03/16 09:40 Temperature 98.5 F Pulse Rate 85 Respiratory 20 Rate Blood Pressure 144/74 - Physical General Appearance: Yes: Moderate Distress, Tremorous, Irritable, Sweating, Anxious HEENTM: Yes: Normal ENT Inspection, Normocephalic, MAGGI, Pharynx Normal, Tm's normal Respiratory: Yes: Lungs Clear, Normal Breath Sounds, No Respiratory Distress Neck: Yes: Within Normal Limits, Supple, Trachea in good position Breast: Yes: Within Normal Limits Cardiology: Yes: Within Normal Limits, Regular Rhythm, Regular Rate, S1, S2 Abdominal: Yes: Within Normal Limits, Normal Bowel Sounds, Non Tender, Flat, Soft Genitourinary: Yes: Within Normal Limits Back: Yes: Normal Inspection, Muscle Spasm Musculoskeletal: Yes: Within Normal Limits, full range of Motion, Back pain, Muscle Pain Extremities: Yes: Within Normal Limits, Normal Capillary Refill, Normal Inspection, Normal Range of Motion, Tremors Neurological: Yes: drug abuse counselor II-XII NML intact, Fully Oriented, Alert, Motor Strength 5/5 Integumentary: Yes: Dry Lymphatic: Yes: Within Normal Limits - Diagnostic (1) Opioid dependence with withdrawal Current Visit: Yes Status: Acute (2) Alcohol dependence with uncomplicated withdrawal Current Visit: Yes Status: Acute (3) Cocaine dependence, uncomplicated Current Visit: Yes Status: Acute (4) Insomnia Current Visit: Yes Status: Acute (5) Drug-induced mood disorder Current Visit: No Status: Chronic (6) Cellulitis Current Visit: Yes Status: Acute Cleared for Admission [facility] - Detox or Rehab [facility] Level of Care: Medically Managed Detox Regimen/Protocol: Methadone/Librium [facility] Breath Alcohol Content Breath Alcohol Content: 0 Urine Drug Screen - Results Drug Screen Negative: No Urine Drug Screen Results: YANELIS-Cocaine, OPI-Opiates
[2016-11-03] MEDS ORDERED: diphenhydrAMINE HCL 50 MG CAPSULE PO PRN (11:46)
[2016-11-03] MEDS ORDERED: MAGNESIUM HYDROX 2400MG/30ML ORAL SUSPENSION 30 ML CUP PO PRN (11:46)
[2016-11-03] MEDS ORDERED: chlordiazePOXIDE HCL 25 MG CAPSULE PO ONE (11:46)
[2016-11-03] MEDS ORDERED: P-EPHED 60MG/TRIPROLIDI 2.5MG TABLET PO PRN (11:46)
[2016-11-03] MEDS ORDERED: IBUPROFEN 400 MG TABLET (FP) PO PRN (11:46)
[2016-11-03] MEDS ORDERED: LOPERAMIDE HCL 2 MG CAPSULE PO PRN (11:46)
[2016-11-03] MEDS ORDERED: METHADONE HCL 10 MG TABLET (FOR DETOX USE ONLY) PO ONE ×2 (11:46→23:00)
[2016-11-03] MEDS ORDERED: ACETAMINOPHEN 325 MG TABLET (FP) PO PRN (11:46)
[2016-11-03] MEDS ORDERED: guaiFENesin/D-METHORPHAN HB 10 ML UNIT-DOSE CUPS PO PRN (11:46)
[2016-11-03] MEDS ORDERED: hydrOXYzine PAMOATE 50 MG CAPSULE (FP) PO PRN (11:46)
[2016-11-03] MEDS ORDERED: MAG HYDROX/AL HYDROX/SIMETH 30 ML UNIT-DOSE CUP PO PRN (11:46)
[2016-11-03] MEDS ORDERED: MAGNESIUM CITRATE 300 ML BOTTLE PO PRN (11:46)
[2016-11-03] MEDS ORDERED: MENTHOL/PHENOL 1 EACH UD MM PRN (11:46)
[2016-11-03] MEDS: CYCLOBENZAPRINE HCL 10 MG TABLET (FP) PO PRN ×2 (12:31→22:09)
[2016-11-03] MEDS: chlordiazePOXIDE HCL 25 MG CAPSULE PO SCH ×2 (17:11→22:08)
[2016-11-03] MEDS: CLINDAMYCIN HCL 150 MG CAPSULE (FP) PO SCH ×2 (17:12→23:11)
[2016-11-03] MEDS: chlordiazePOXIDE HCL 25 MG CAPSULE PO PRN (19:51)
[2016-11-03 21:23] LABS: URINE APPEARANCE CLEAR; URINE BILIRUBIN NEGATIVE (NEGATIVE); URINE BLOOD NEGATIVE (NEGATIVE); URINE COLOR YELLOW; URINE GLUCOSE (UA) NEGATIVE (NEGATIVE); URINE KETONE NEGATIVE (NEGATIVE); URINE LEUK ESTERASE NEGATIVE (NEGATIVE); URINE NITRITE NEGATIVE (NEGATIVE); URINE PROTEIN NEGATIVE (NEGATIVE); URINE UROBILINOGEN NEGATIVE mg/dL (0.2-1.0)
[2016-11-03] MEDS: THIAMINE HCL 100 MG TABLET (FP) PO SCH (22:08)
[2016-11-03] MEDS: cloNIDine HCL 0.1 MG TABLET PO SCH (22:08)
[2016-11-04] MEDS: chlordiazePOXIDE HCL 25 MG CAPSULE PO SCH ×4 (05:33→22:11)
[2016-11-04] MEDS: CLINDAMYCIN HCL 150 MG CAPSULE (FP) PO SCH ×3 (05:33→17:15)
[2016-11-04] MEDS ORDERED: METHADONE HCL 10 MG TABLET (FOR DETOX USE ONLY) PO SCH (10:00)
[2016-11-04 10:22] LABS: MEAN PLT VOLUME 8.4 fl (7.5-11.1); RDW 15.8 % (11.9-15.9)
[2016-11-04] MEDS: PRENATAL VITAMINS W/ FOLIC ACID TABLET (FP) PO SCH (10:23)
[2016-11-04] MEDS: cloNIDine HCL 0.1 MG TABLET PO SCH ×2 (10:23→22:12)
[2016-11-04 10:25] LABS: MCH 27.6 pg (25.7-33.7); MCHC 32.6 g/dl (32.0-35.9); MEAN CELL VOLUME 84.8 fl (80-96); PLATELET COUNT 229 K/MM3 (134-434); WHITE BLOOD COUNT 5.6 K/mm3 (4.0-10.0)
[2016-11-04 10:33] LABS: ALK PHOS 85 U/L (45-117); ANION GAP 3 (8-16); BILIRUBIN,TOTAL 0.3 mg/dL (0.2-1.0); CALCIUM 9.1 mg/dL (8.5-10.1); CO2 31 mmol/L (21-32); CREATININE 0.9 mg/dL (0.7-1.3); GLUCOSE,RANDOM 90 mg/dL (74-106); SGOT/AST 17 U/L (15-37); SGPT/ALT 33 U/L (12-78); TOT PROT 6.5 g/dl (6.4-8.2)
--- NOTE | 2016-11-04 11:28 | EKG ---
Test Reason : Blood Pressure : / mmHG Vent. Rate : 079 BPM Atrial Rate : 079 BPM P-R Int : 158 ms QRS Dur : 086 ms QT Int : 390 ms P-R-T Axes : 055 067 037 degrees QTc Int : 447 ms NORMAL SINUS RHYTHM NORMAL ECG WHEN COMPARED WITH ECG OF 18-SEP-2016 16:09, NO SIGNIFICANT CHANGE WAS FOUND Confirmed by BASILIA STONER MD ([id number]) on 11/04/2016 11:27:52 AM Referred By: Confirmed By:BASILIA STONER MD
--- NOTE | 2016-11-04 11:43 | CONSULT ---
[facility] Psychiatric Consult - Data Date of interview: 11/04/16 Admission source: [facility] Identifying data: One of multiple admissions to [facility] for this 31 y/o male seeking detox treatment on for heroin,cocaine and alcohol dependence.Patient is single without children,homeless,unemployed and supported on Public Assistance. Substance Abuse History: Confirmed by patient in this interview. Smoking Cessation. Smoking history: Current every day smoker. Have you smoked in the past 12 months: Yes. Aproximately how many cigarettes per day: 20. Cigars Per Day: 0. Hx Chewing Tobacco Use: No. Initiated information on smoking cessation : Yes. 'Breaking Loose' booklet given: 10/27/16. - Substance & Tx. History. Hx Alcohol Use: Yes. Hx Substance Use: Yes. Substance Use Type: Alcohol, Heroin. Hx Substance Use Treatment: Yes ([facility] 09/18/16 TO 09/23/16). - Substances Abused. Alcohol. Route: Oral. Frequency: Daily. Amount used: LIQUOR- 1 PINT, BEER- 2 SIX PACK. Age of first use: 12. Date of Last Use: . Heroin. Route: Injection. Frequency: Daily. Amount used: 10 BAGS. Age of first use: 23. Date of Last Use: 11/02/16 Medical History: Patient reports recent medical treatment for cellulitis of left chest wall. Psychiatric History: Brief history of OPD care for depression.Patient reports that he used to be on wellbutrin,xanax,lexapro." I stopped taking them because they don't work." Patient denies history of psychiatric hospitalizations or suicide atttempts.Mr Ceullo declines to resume antidepressant medications. Physical/Sexual Abuse/Trauma History: Patient denies history of abuse. Additional Comment: Urine Drug Screen Results: YANELIS-Cocaine, OPI-Opiates.Noted. Mental Status Exam - Mental Status Exam Alert and Oriented to: Time, Place, Person Cognitive Function: Good Patient Appearance: Well Groomed Mood: Hopeful, Euthymic Affect: Appropriate, Normal Range Patient Behavior: Cooperative Speech Pattern: Clear, Appropriate Voice Loudness: Normal Thought Process: Intact, Goal Oriented Thought Disorder: Not Present Hallucinations: Denies Suicidal Ideation: Denies Homicidal Ideation: Denies Insight/Judgement: Poor Sleep: Poorly, Difficulty falling asleep Appetite: Good Muscle strength/Tone: Normal Gait/Station: Normal Psychiatric Findings - Problem List ([place] 1, 2,3) (1) Alcohol dependence with uncomplicated withdrawal Current Visit: Yes Status: Acute (2) Cocaine dependence, uncomplicated Current Visit: Yes Status: Acute (3) Opioid dependence with withdrawal Current Visit: Yes Status: Acute (4) Nicotine dependence Current Visit: Yes Status: Acute Qualifiers: Nicotine product type: cigarettes Substance use status: in withdrawal Qualified Code(s): F17.213 - Nicotine dependence, cigarettes, with withdrawal (5) Insomnia Current Visit: Yes Status: Acute - Initial Treatment Plan Initial Treatment Plan: Psychoeducation.Detoxification.Ambien 10 mg po hs ( patient's request).Made aware of potential for insomnia.Observation.
[2016-11-04] MEDS: chlordiazePOXIDE HCL 25 MG CAPSULE PO PRN ×2 (12:13→19:27)
[2016-11-04] MEDS: NICOTINE POLACRILEX 2 MG GUM BC PRN ×2 (14:21→19:27)
[2016-11-04] MEDS: CYCLOBENZAPRINE HCL 10 MG TABLET (FP) PO PRN ×2 (14:55→22:12)
--- NOTE | 2016-11-04 15:56 | PN ---
[facility] CIWA - CIWA Score Nausea/Vomitin-Mild Nausea/No Vomiting Muscle Tremors: 3 Anxiety: 3 Agitation: 4-Moderately Restless Paroxysmal Sweats: 3 Orientation: 0-Oriented Tacttile Disturbances: 0-None Auditory Disturbances: 0-None Visual Disturbances: 0-None Headache: 0-None Present CIWA-Ar Total Score: 14 BHS COWS - Scale Resting Pulse: 0= HI 80 or Below Sweatin=Flushed/Facial Moisture Restless Observation: 1= Difficult to Sit Still Pupil Size: 0= Normal to Room Light Bone or Joint Aches: 2= Severe Diffuse Aches Runny Nose/ Eye Tearin= Runny Nose/Eyes GI Upset > 30mins: 2= Nausea/Diarrhea Tremor Observation of Outstretched Hands: 2= Slight Tremor Visible Yawning Observation: 1= 1-2x During Session Anxiety or Irritability: 2=Irritable/Anxious Goose Flesh Skin: 0=Smooth Skin COWS Score: 14 [facility] Progress Note (SOAP) Subjective: Anxiety,tremors,sweating,interrupted sleep,restless Objective: 11/04/16 15:55 Vital Signs - 8 hr 11/04/16 11/04/16 09:05 13:26 Temperature 96.2 F L 95.3 F L Pulse Rate 67 64 Respiratory 18 20 Rate Blood Pressure 118/76 123/78 Laboratory Tests 11/03/16 11/04/16 11/04/16 15:22 07:50 07:50 WBC 5.6 D RBC 4.73 Hgb 13.1 D Hct 40.1 MCV 84.8 MCH 27.6 MCHC 32.6 RDW 15.8 Plt Count 229 D MPV 8.4 Sodium 139 Potassium 4.0 Chloride 105 Carbon Dioxide 31 D Anion Gap 3 L BUN 12 D Creatinine 0.9 Creat Clearance w eGFR > 60 Random Glucose 90 D Calcium 9.1 Total Bilirubin 0.3 D AST 17 D ALT 33 D Alkaline Phosphatase 85 D Total Protein 6.5 Albumin 3.0 L D Urine Color Yellow Urine Appearance Clear Urine pH 5.0 Ur Specific [place] 1.025 Urine Protein Negative Urine Glucose (UA) Negative Urine Ketones Negative Urine Blood Negative Urine Nitrite Negative Urine Bilirubin Negative Urine Urobilinogen Negative RPR Titer 11/04/16 07:50 WBC RBC Hgb Hct MCV MCH MCHC RDW Plt Count MPV Sodium Potassium Chloride Carbon Dioxide Anion Gap BUN Creatinine Creat Clearance w eGFR Random Glucose Calcium Total Bilirubin AST ALT Alkaline Phosphatase Total Protein Albumin Urine Color Urine Appearance Urine pH Ur Specific [place] Urine Protein Urine Glucose (UA) Urine Ketones Urine Blood Urine Nitrite Urine Bilirubin Urine Urobilinogen RPR Titer Nonreactive labs noted Assessment: 11/04/16 15:55 Withdrawal sx. Plan: continue detox
[2016-11-04] MEDS: THIAMINE HCL 100 MG TABLET (FP) PO SCH (22:11)
[2016-11-04] MEDS: ZOLPIDEM TARTRATE 10 MG TABLET (PARK CARE ONLY) PO PRN (22:12)
[2016-11-05] MEDS: CLINDAMYCIN HCL 150 MG CAPSULE (FP) PO SCH ×5 (05:31→23:04)
[2016-11-05] MEDS: chlordiazePOXIDE HCL 25 MG CAPSULE PO SCH ×2 (05:31→10:14)
[2016-11-05] MEDS: chlordiazePOXIDE HCL 25 MG CAPSULE PO PRN ×3 (08:32→19:19)
[2016-11-05] MEDS: NICOTINE POLACRILEX 2 MG GUM BC PRN ×3 (08:33→17:59)
[2016-11-05] MEDS: PRENATAL VITAMINS W/ FOLIC ACID TABLET (FP) PO SCH (10:14)
[2016-11-05] MEDS: METHADONE HCL 5 MG TABLET (FOR DETOX USE ONLY) PO SCH (10:14)
[2016-11-05] MEDS: cloNIDine HCL 0.1 MG TABLET PO SCH ×2 (10:14→22:02)
--- NOTE | 2016-11-05 12:31 | PN ---
S CIWA - CIWA Score Nausea/Vomitin Muscle Tremors: 2 Anxiety: 3 Agitation: 1-Slight > Activity Paroxysmal Sweats: 3 Orientation: 0-Oriented Tacttile Disturbances: 2-Mild Itch/Numbness/Burn Auditory Disturbances: 2-Mild Harshness/Frighten Visual Disturbances: 2-Mild Sensitivity Headache: 0-None Present CIWA-Ar Total Score: 17 [facility] COWS - Scale Resting Pulse: 1= [place] 81-100 Sweatin= Chills/Flushing Restless Observation: 1= Difficult to Sit Still Pupil Size: 0= Normal to Room Light Bone or Joint Aches: 2= Severe Diffuse Aches Runny Nose/ Eye Tearin= None GI Upset > 30mins: 2= Nausea/Diarrhea Tremor Observation of Outstretched Hands: 2= Slight Tremor Visible Yawning Observation: 2= >3x During Session Anxiety or Irritability: 2=Irritable/Anxious Goose Flesh Skin: 0=Smooth Skin COWS Score: 13 S Progress Note (SOAP) Subjective: Stomach Cramping, Nausea, Anxious, Tremors, Sweating. Objective: PT. A & O X 3, OBSERVED AMBULATING ON UNIT. NO ACUTE DISTRESS. 11/05/16 12:30 Vital Signs Temperature 96.4 F L 11/05/16 09:22 Pulse Rate 90 11/05/16 09:22 Respiratory Rate 18 11/05/16 09:22 Blood Pressure 134/70 11/05/16 09:22 O2 Sat by Pulse Oximetry (%) Laboratory Tests 11/03/16 11/04/16 11/04/16 15:22 07:50 07:50 WBC 5.6 D RBC 4.73 Hgb 13.1 D Hct 40.1 MCV 84.8 MCH 27.6 MCHC 32.6 RDW 15.8 Plt Count 229 D MPV 8.4 Sodium 139 Potassium 4.0 Chloride 105 Carbon Dioxide 31 D Anion Gap 3 L BUN 12 D Creatinine 0.9 Creat Clearance w eGFR > 60 Random Glucose 90 D Calcium 9.1 Total Bilirubin 0.3 D AST 17 D ALT 33 D Alkaline Phosphatase 85 D Total Protein 6.5 Albumin 3.0 L D Urine Color Yellow Urine Appearance Clear Urine pH 5.0 Ur Specific [place] 1.025 Urine Protein Negative Urine Glucose (UA) Negative Urine Ketones Negative Urine Blood Negative Urine Nitrite Negative Urine Bilirubin Negative Urine Urobilinogen Negative RPR Titer 11/04/16 07:50 WBC RBC Hgb Hct MCV MCH MCHC RDW Plt Count MPV Sodium Potassium Chloride Carbon Dioxide Anion Gap BUN Creatinine Creat Clearance w eGFR Random Glucose Calcium Total Bilirubin AST ALT Alkaline Phosphatase Total Protein Albumin Urine Color Urine Appearance Urine pH Ur Specific [place] Urine Protein Urine Glucose (UA) Urine Ketones Urine Blood Urine Nitrite Urine Bilirubin Urine Urobilinogen RPR Titer Nonreactive labs noted. Assessment: 11/05/16 12:30 WITHDRAWAL SYMPTOMS. Plan: CONTINUE DETOX.
[2016-11-05] MEDS: chlordiazePOXIDE 5 MG CAPSULE PO SCH ×2 (17:17→22:02)
[2016-11-05] MEDS: ZOLPIDEM TARTRATE 10 MG TABLET (PARK CARE ONLY) PO PRN (22:02)
[2016-11-05] MEDS: THIAMINE HCL 100 MG TABLET (FP) PO SCH (22:02)
[2016-11-06] MEDS: CLINDAMYCIN HCL 150 MG CAPSULE (FP) PO SCH ×4 (05:45→23:07)
[2016-11-06] MEDS: chlordiazePOXIDE 5 MG CAPSULE PO SCH ×2 (05:45→10:03)
[2016-11-06] MEDS: NICOTINE POLACRILEX 2 MG GUM BC PRN ×4 (08:28→20:40)
[2016-11-06] MEDS: chlordiazePOXIDE HCL 25 MG CAPSULE PO PRN (08:28)
[2016-11-06] MEDS: METHADONE HCL 5 MG TABLET (FOR DETOX USE ONLY) PO SCH (10:03)
[2016-11-06] MEDS: cloNIDine HCL 0.1 MG TABLET PO SCH ×2 (10:03→22:12)
[2016-11-06] MEDS: PRENATAL VITAMINS W/ FOLIC ACID TABLET (FP) PO SCH (10:03)
--- NOTE | 2016-11-06 12:46 | PN ---
[facility] Progress Note (SOAP) Subjective: Sweating, Stomach Cramping, Tremors. Objective: PT. A & O X 3, OBSERVED AMBULATING ON UNIT. NO ACUTE DISTRESS. 11/06/16 12:43 Vital Signs Temperature 97.9 F 11/06/16 09:20 Pulse Rate 68 11/06/16 09:20 Respiratory Rate 18 11/06/16 09:20 Blood Pressure 128/82 11/06/16 09:20 O2 Sat by Pulse Oximetry (%) Laboratory Tests 11/03/16 11/04/16 11/04/16 15:22 07:50 07:50 WBC 5.6 D RBC 4.73 Hgb 13.1 D Hct 40.1 MCV 84.8 MCH 27.6 MCHC 32.6 RDW 15.8 Plt Count 229 D MPV 8.4 Sodium 139 Potassium 4.0 Chloride 105 Carbon Dioxide 31 D Anion Gap 3 L BUN 12 D Creatinine 0.9 Creat Clearance w eGFR > 60 Random Glucose 90 D Calcium 9.1 Total Bilirubin 0.3 D AST 17 D ALT 33 D Alkaline Phosphatase 85 D Total Protein 6.5 Albumin 3.0 L D Urine Color Yellow Urine Appearance Clear Urine pH 5.0 Ur Specific [place] 1.025 Urine Protein Negative Urine Glucose (UA) Negative Urine Ketones Negative Urine Blood Negative Urine Nitrite Negative Urine Bilirubin Negative Urine Urobilinogen Negative RPR Titer 11/04/16 07:50 WBC RBC Hgb Hct MCV MCH MCHC RDW Plt Count MPV Sodium Potassium Chloride Carbon Dioxide Anion Gap BUN Creatinine Creat Clearance w eGFR Random Glucose Calcium Total Bilirubin AST ALT Alkaline Phosphatase Total Protein Albumin Urine Color Urine Appearance Urine pH Ur Specific [place] Urine Protein Urine Glucose (UA) Urine Ketones Urine Blood Urine Nitrite Urine Bilirubin Urine Urobilinogen RPR Titer Nonreactive LABS NOTED. Assessment: 11/06/16 12:44 WITHDRAWAL SYMPTOMS. Plan: CONTINUE DETOX.
[2016-11-06] MEDS: chlordiazePOXIDE HCL 10 MG CAPSULE PO SCH ×2 (16:59→22:12)
[2016-11-06] MEDS: ZOLPIDEM TARTRATE 10 MG TABLET (PARK CARE ONLY) PO PRN (22:12)
[2016-11-06] MEDS: CYCLOBENZAPRINE HCL 10 MG TABLET (FP) PO PRN (22:12)
[2016-11-06] MEDS: THIAMINE HCL 100 MG TABLET (FP) PO SCH (22:12)
[2016-11-07] MEDS: chlordiazePOXIDE HCL 10 MG CAPSULE PO SCH ×2 (05:42→10:04)
[2016-11-07] MEDS: CLINDAMYCIN HCL 150 MG CAPSULE (FP) PO SCH ×4 (05:42→23:19)
[2016-11-07] MEDS: NICOTINE POLACRILEX 2 MG GUM BC PRN ×6 (05:43→22:18)
[2016-11-07] MEDS ORDERED: METHADONE HCL 10 MG TABLET (FOR DETOX USE ONLY) PO SCH (10:00)
[2016-11-07] MEDS: PRENATAL VITAMINS W/ FOLIC ACID TABLET (FP) PO SCH (10:04)
[2016-11-07] MEDS: cloNIDine HCL 0.1 MG TABLET PO SCH ×2 (10:04→22:17)
--- NOTE | 2016-11-07 11:00 | PN ---
[facility] Progress Note (SOAP) Subjective: ANXIETY, SWEATS, INTERMITTENT SLEEP. Objective: 11/07/16 10:58 Vital Signs Temperature 98.7 F 11/07/16 09:14 Pulse Rate 81 11/07/16 09:14 Respiratory Rate 18 11/07/16 09:14 Blood Pressure 122/59 11/07/16 09:14 O2 Sat by Pulse Oximetry (%) Laboratory Last Values WBC 5.6 K/mm3 (4.0-10.0) D 11/04/16 07:50 RBC 4.73 M/mm3 (4.00-5.60) 11/04/16 07:50 Hgb 13.1 GM/dL (11.7-16.9) D 11/04/16 07:50 Hct 40.1 % (35.4-49) 11/04/16 07:50 MCV 84.8 fl (80-96) 11/04/16 07:50 MCH 27.6 pg (25.7-33.7) 11/04/16 07:50 MCHC 32.6 g/dl (32.0-35.9) 11/04/16 07:50 RDW 15.8 % (11.9-15.9) 11/04/16 07:50 Plt Count 229 K/MM3 (134-434) D 11/04/16 07:50 MPV 8.4 fl (7.5-11.1) 11/04/16 07:50 Sodium 139 mmol/L (136-145) 11/04/16 07:50 Potassium 4.0 mmol/L (3.5-5.1) 11/04/16 07:50 Chloride 105 mmol/L (98-107) 11/04/16 07:50 Carbon Dioxide 31 mmol/L (21-32) D 11/04/16 07:50 Anion Gap 3 (8-16) L 11/04/16 07:50 BUN 12 mg/dL (7-18) D 11/04/16 07:50 Creatinine 0.9 mg/dL (0.7-1.3) 11/04/16 07:50 Creat Clearance w eGFR > 60 (>60) 11/04/16 07:50 Random Glucose 90 mg/dL (74-106) D 11/04/16 07:50 Calcium 9.1 mg/dL (8.5-10.1) 11/04/16 07:50 Total Bilirubin 0.3 mg/dL (0.2-1.0) D 11/04/16 07:50 AST 17 U/L (15-37) D 11/04/16 07:50 ALT 33 U/L (12-78) D 11/04/16 07:50 Alkaline Phosphatase 85 U/L (45-117) D 11/04/16 07:50 Total Protein 6.5 g/dl (6.4-8.2) 11/04/16 07:50 Albumin 3.0 g/dl (3.4-5.0) L D 11/04/16 07:50 Urine Color Yellow 11/03/16 15:22 Urine Appearance Clear 11/03/16 15:22 Urine pH 5.0 (5.0-8.0) 11/03/16 15:22 Ur Specific [place] 1.025 (1.005-1.025) 11/03/16 15:22 Urine Protein Negative (NEGATIVE) 11/03/16 15:22 Urine Glucose (UA) Negative (NEGATIVE) 11/03/16 15:22 Urine Ketones Negative (NEGATIVE) 11/03/16 15:22 Urine Blood Negative (NEGATIVE) 11/03/16 15:22 Urine Nitrite Negative (NEGATIVE) 11/03/16 15:22 Urine Bilirubin Negative (NEGATIVE) 11/03/16 15:22 Urine Urobilinogen Negative mg/dL (0.2-1.0) 11/03/16 15:22 RPR Titer Nonreactive (NONREACTIVE) 11/04/16 07:50 Assessment: 11/07/16 10:59 WITHDRAWAL SX Plan: CONTINUE DETOX
[2016-11-07 14:08] LABS: HIV 1 & 2 AB NEGATIVE; HIV 1 AGp24 NEGATIVE
[2016-11-07] MEDS: ZOLPIDEM TARTRATE 10 MG TABLET (PARK CARE ONLY) PO PRN (21:55)
[2016-11-07] MEDS: CYCLOBENZAPRINE HCL 10 MG TABLET (FP) PO PRN (22:17)
[2016-11-07] MEDS: THIAMINE HCL 100 MG TABLET (FP) PO SCH (22:17)
[2016-11-08] MEDS: CLINDAMYCIN HCL 150 MG CAPSULE (FP) PO SCH (05:56)
[2016-11-08] MEDS ORDERED: METHADONE HCL 5 MG TABLET (FOR DETOX USE ONLY) PO SCH (06:00)
[2016-11-08 09:28] VITALS: BP 142/86; PULSE 77; TEMP 97.6
[2016-11-08] MEDS: PRENATAL VITAMINS W/ FOLIC ACID TABLET (FP) PO SCH (10:20)
[2016-11-08] MEDS: cloNIDine HCL 0.1 MG TABLET PO SCH (10:20)
[2016-11-08] MEDS: NICOTINE POLACRILEX 2 MG GUM BC PRN (10:21)
--- NOTE | 2016-11-08 12:39 | DS ---
[facility] Detox Discharge Summary Admission Date: 11/03/16 Discharge Date: 11/08/16 - History Present History: Alcohol Dependence, Cocaine Dependence, Opioid Dependence Additional Comments: PATIENT GOING TO [facility] FOR AFTERCARE. PATIENT WAS DISCHARGED FROM DETOX UNIT IN STABLE MEDICAL CONDITION. Pertinent Past History: Depression, Insomnia, Nicotine Dependence, Cellulitis. - Physical Exam Results Vital Signs: Vital Signs Temperature 97.6 F 11/08/16 09:28 Pulse Rate 77 11/08/16 09:28 Respiratory Rate 18 11/08/16 09:28 Blood Pressure 142/86 11/08/16 09:28 O2 Sat by Pulse Oximetry (%) Pertinent Admission Physical Exam Findings: WITHDRAWAL SYMPTOMS. Laboratory Tests 11/03/16 11/04/16 11/04/16 15:22 07:50 07:50 WBC 5.6 D RBC 4.73 Hgb 13.1 D Hct 40.1 MCV 84.8 MCH 27.6 MCHC 32.6 RDW 15.8 Plt Count 229 D MPV 8.4 Sodium 139 Potassium 4.0 Chloride 105 Carbon Dioxide 31 D Anion Gap 3 L BUN 12 D Creatinine 0.9 Creat Clearance w eGFR > 60 Random Glucose 90 D Calcium 9.1 Total Bilirubin 0.3 D AST 17 D ALT 33 D Alkaline Phosphatase 85 D Total Protein 6.5 Albumin 3.0 L D Urine Color Yellow Urine Appearance Clear Urine pH 5.0 Ur Specific [place] 1.025 Urine Protein Negative Urine Glucose (UA) Negative Urine Ketones Negative Urine Blood Negative Urine Nitrite Negative Urine Bilirubin Negative Urine Urobilinogen Negative RPR Titer Hepatitis C Antibody HIV 1&2 Antibody Screen HIV P24 Antigen 11/04/16 11/07/16 11/07/16 07:50 11:30 11:30 WBC RBC Hgb Hct MCV MCH MCHC RDW Plt Count MPV Sodium Potassium Chloride Carbon Dioxide Anion Gap BUN Creatinine Creat Clearance w eGFR Random Glucose Calcium Total Bilirubin AST ALT Alkaline Phosphatase Total Protein Albumin Urine Color Urine Appearance Urine pH Ur Specific [place] Urine Protein Urine Glucose (UA) Urine Ketones Urine Blood Urine Nitrite Urine Bilirubin Urine Urobilinogen RPR Titer Nonreactive Hepatitis C Antibody >11.0 H HIV 1&2 Antibody Screen Negative HIV P24 Antigen Negative LABS NOTED. - Treatment Hospital Course: Detox Protocol Followed, Detoxed Safely, Responded well, Discharged Condition Good, Rehab Referral Accepted Patient has Accepted a Rehab Referral to: [facility]. - Medication Discharge Medications: Ambulatory Orders Clindamycin [Cleocin -] 300 mg PO Q6H 11/03/16 - Diagnosis (1) Alcohol dependence with uncomplicated withdrawal Status: Acute (2) Cellulitis Status: Acute Qualifiers: Site of cellulitis: unspecified site Qualified Code(s): L03.90 - Cellulitis, unspecified (3) Cocaine dependence, uncomplicated Status: Acute (4) Insomnia Status: Acute Qualifiers: Insomnia type: unspecified Qualified Code(s): G47.00 - Insomnia, unspecified (5) Nicotine dependence Status: Chronic Qualifiers: Nicotine product type: cigarettes Substance use status: in withdrawal Qualified Code(s): F17.213 - Nicotine dependence, cigarettes, with withdrawal (6) Opioid dependence with withdrawal Status: Acute (7) Substance-induced sleep disorder Status: Acute - AMA Did Patient Leave Against Medical Advice: No
== END 2016-11-08 11:20 | disposition home or self-care (01) | DRG 773 ==
LOC: YASAS 08:41 → Y3N 11:23
PROVIDERS: ADMIT Internal Medicine; ATTEND Internal Medicine
PROC: HZ2ZZZZ Detoxification Services for Substance Abuse Treatment (ICD-10-PCS; principal; 2016-11-03)
DX: F11.23 Opioid dependence with withdrawal (principal); F10.230 Alcohol dependence with withdrawal, uncomplicated; F14.20 Cocaine dependence, uncomplicated; F17.210 Nicotine dependence, cigarettes, uncomplicated; F19.282 Other psychoactive substance dependence with psychoactive substance-induced sleep disorder; F41.9 Anxiety disorder, unspecified; G47.00 Insomnia, unspecified; L03.90 Cellulitis, unspecified
CPT/HCPCS: 36415; 80053; 81003; 85027; 86593; 86803; 87389; 93005; 93010

== ENCOUNTER 2016-11-08 11:52 | Inpatient (IN) | payer OTHER ==
[~2016-11-08 11:52] MED LIST: ACETAMINOPHEN 325 MG TABLET (FP) PO PRN; IBUPROFEN 400 MG TABLET (FP) PO PRN; LOPERAMIDE HCL 2 MG CAPSULE PO PRN; MAG HYDROX/AL HYDROX/SIMETH 30 ML UNIT-DOSE CUP PO PRN; MAGNESIUM CITRATE 300 ML BOTTLE PO PRN; MAGNESIUM HYDROX 2400MG/30ML ORAL SUSPENSION 30 ML CUP PO PRN; MENTHOL/PHENOL 1 EACH UD MM PRN; P-EPHED 60MG/TRIPROLIDI 2.5MG TABLET PO PRN; diphenhydrAMINE HCL 50 MG CAPSULE PO PRN; guaiFENesin/D-METHORPHAN HB 10 ML UNIT-DOSE CUPS PO PRN; hydrOXYzine PAMOATE 50 MG CAPSULE (FP) PO PRN
--- NOTE | 2016-11-08 12:20 | HP ---
[facility] Re[facility] Assess/Revision - Admission History Admitted to Rehab from: [facility] Date of Admission to Rehab: 11/08/2016 - Vital signs Vital Signs: NOTED, STABLE. - Findings Detox History & Physical reviewed: Yes Concur with findings: Yes Comments/Additional Findings: PATIENT'S MEDICAL / MEDICATION HISTORY REVIEWED PRIOR TO DISCHARGE FROM DETOX. REMAINDER OF COURSE OF CLINDAMYCIN, 300 MG Q6H PO THAT PATIENT STARTED PRIOR TO ADMISSION TO DETOX (AND CONTINUED WHILE ADMITTED FOR DETOX) ORDERED TO BE CONTINUED IN REHAB. PATIENT WAS DISCHARGED [facility] DETOX UNIT TO BE TAKEN TO REHAB UNIT IN STABLE MEDICAL CONDITION.
--- NOTE | 2016-11-08 12:33 | HP ---
Psychiatrist Admission - Data Date of interview: 11/08/16 Admission source: [facility] Identifying data: This is the second [facility] admissin for this 31 years old single , unemployed on food stamp, homeless Medical History: Significant for recent medical treatment for cellulitis of left chest wall. Smokes 10 cigarettes daily Psychiatric History: Reports history of brief psychiatric outpatient treatment 7 years ago for depression & anxiety. He was tried on Wellbutrin, Lexapro and Xanax. Claims that only Xanax was effective and he took it for an entire year. Told consumer loan underwriter that he was drinking at the time and believes alcohol had to do with that depression/anxiety. Denies history of previous psychiatric hospitalization or suicidal attempt. At present, reports doing ok but sleeping poorly Physical/Sexual Abuse/Trauma History: Denies history of verbal, physical or sexual abuse as well as DV relationship. No service Additional Comment: Reports history of 3-4 previous misdemeanor arrests. No probation currently but has a current court case on charges of martin penaloza( stealing) Allergies/Adverse Reactions: Allergies Allergy/AdvReac Type Severity Reaction Status Date / Time No Known Allergies Allergy Verified 11/08/16 12:30 Date of last physical exam: 11/03/16 Concur with the findings of this exam: Yes (5 previous inpatient detox & one rehab) - Substance Abuse/Tx History Substance Use Type: Alcohol (Started drinking alcohol at age 12, consumes one pint of liquor & 2x 6pk of beer daily. Last drank on 11/02/16), Heroin (Started using heroin at age 23, consumes 10 bags daily. Last used on ) Hx Substance Use Treatment: Yes (5 previous inpt detox & one inpt rehab @ [facility]) Mental Status Exam - Mental Status Exam Alert and Oriented to: Time, Place, Person Cognitive Function: Fair Patient Appearance: Well Groomed Mood: Hopeful, Euthymic Patient Behavior: Cooperative Speech Pattern: Clear Voice Loudness: Normal Thought Process: Intact, Goal Oriented Thought Disorder: Not Present Hallucinations: Denies Suicidal Ideation: Denies Homicidal Ideation: Denies Insight/Judgement: Fair Sleep: Poorly Appetite: Good Muscle strength/Tone: Normal Gait/Station: Normal Psychiatric Findings - Problem List ([place] 1, 2,3) (1) Alcohol dependence Current Visit: Yes Status: Acute (2) Opioid dependence Current Visit: Yes Status: Acute (3) Nicotine dependence Current Visit: No Status: Chronic Qualifiers: Nicotine product type: cigarettes Substance use status: in withdrawal Qualified Code(s): F17.213 - Nicotine dependence, cigarettes, with withdrawal (4) Substance induced mood disorder Current Visit: Yes Status: Acute (5) Cellulitis Current Visit: No Status: Acute Qualifiers: Site of cellulitis: unspecified site Qualified Code(s): L03.90 - Cellulitis, unspecified (6) HCV (hepatitis C virus) Current Visit: No Status: Acute (7) Substance-induced sleep disorder Current Visit: No Status: Acute - Initial Treatment Plan Initial Treatment Plan: 1) Start Belsomra 10 mg po HS prn for insomnia. 2) Monitor progress
[2016-11-08 12:48] VITALS: BMI 26.2
[2016-11-08] MEDS: NICOTINE POLACRILEX 2 MG GUM BUC PRN ×2 (13:15→18:01)
[2016-11-08] MEDS: CLINDAMYCIN HCL 150 MG CAPSULE (FP) PO SCH (18:01)
[2016-11-08] MEDS: THIAMINE HCL 100 MG TABLET (FP) PO SCH (21:16)
[2016-11-08] MEDS ORDERED: SUVOREXANT 10 MG TABLET PO PRN (22:00)
[2016-11-09] MEDS: CLINDAMYCIN HCL 150 MG CAPSULE (FP) PO SCH ×5 (01:12→23:39)
[2016-11-09] MEDS: PRENATAL VITAMINS W/ FOLIC ACID TABLET (FP) PO SCH (10:05)
[2016-11-09] MEDS: NICOTINE POLACRILEX 2 MG GUM BUC PRN ×4 (10:05→21:25)
[2016-11-09] MEDS: NICOTINE 14 MG/24 HOURS TOPICAL PATCH TD SCH (10:05)
[2016-11-09] MEDS: THIAMINE HCL 100 MG TABLET (FP) PO SCH (21:24)
[2016-11-10] MEDS: CLINDAMYCIN HCL 150 MG CAPSULE (FP) PO SCH ×4 (06:35→23:39)
[2016-11-10] MEDS: NICOTINE POLACRILEX 2 MG GUM BUC PRN ×6 (07:03→21:46)
[2016-11-10] MEDS: PRENATAL VITAMINS W/ FOLIC ACID TABLET (FP) PO SCH (10:12)
[2016-11-10] MEDS: NICOTINE 14 MG/24 HOURS TOPICAL PATCH TD SCH (10:12)
[2016-11-10] MEDS: THIAMINE HCL 100 MG TABLET (FP) PO SCH (21:39)
[2016-11-11] MEDS ORDERED: SUVOREXANT 10 MG TABLET PO PRN (06:30)
[2016-11-11] MEDS: CLINDAMYCIN HCL 150 MG CAPSULE (FP) PO SCH ×2 (06:39→11:21)
[2016-11-11] MEDS: NICOTINE POLACRILEX 2 MG GUM BUC PRN ×6 (06:40→21:17)
[2016-11-11] MEDS: NICOTINE 14 MG/24 HOURS TOPICAL PATCH TD SCH (10:12)
[2016-11-11] MEDS: PRENATAL VITAMINS W/ FOLIC ACID TABLET (FP) PO SCH (10:12)
--- NOTE | 2016-11-11 13:50 | PN ---
S Progress Note Note: d/c cleocin at patient request. Would like to have suboxone induction, will follow up in residential treatment, requesting MAT ccan [facility]. start buboxone s/l 2mg x1 dose today if tolearted copntinue suboxone 4mg daily at 10 am (2 2mg strips). discussed risks and benefits of MAT and risk of precipitated withdrawal
[2016-11-11] MEDS ORDERED: BUPRENORPHINE/NALOXONE 2 MG/0.5 MG FILM PACKET SL ONE (13:55)
[2016-11-11] MEDS: THIAMINE HCL 100 MG TABLET (FP) PO SCH (21:18)
[2016-11-12] MEDS: NICOTINE POLACRILEX 2 MG GUM BUC PRN ×6 (06:46→21:23)
[2016-11-12] MEDS: PRENATAL VITAMINS W/ FOLIC ACID TABLET (FP) PO SCH (10:21)
[2016-11-12] MEDS: BUPRENORPHINE/NALOXONE 2 MG/0.5 MG FILM PACKET SL SCH (10:21)
[2016-11-12] MEDS: NICOTINE 14 MG/24 HOURS TOPICAL PATCH TD SCH (10:22)
[2016-11-12] MEDS: THIAMINE HCL 100 MG TABLET (FP) PO SCH (21:23)
[2016-11-13] MEDS: NICOTINE POLACRILEX 2 MG GUM BUC PRN ×5 (08:55→21:13)
[2016-11-13] MEDS: NICOTINE 14 MG/24 HOURS TOPICAL PATCH TD SCH (09:57)
[2016-11-13] MEDS: PRENATAL VITAMINS W/ FOLIC ACID TABLET (FP) PO SCH (09:57)
[2016-11-13] MEDS: BUPRENORPHINE/NALOXONE 2 MG/0.5 MG FILM PACKET SL SCH (09:58)
[2016-11-13] MEDS ORDERED: BUPRENORPHINE/NALOXONE 2 MG/0.5 MG FILM PACKET SL ONE (16:00)
--- NOTE | 2016-11-13 16:03 | PN ---
[facility] Progress Note Note: patient reporting continued cravings, not comfortable would like to increase dose from 4mg daily. will give 2mg s/l x1 dose now then start on 8 mg s/l daily tomorrow if increased dose tolerated. will follow. counsleor should evaluate for response/continued cravings - desire to use.
[2016-11-13] MEDS: THIAMINE HCL 100 MG TABLET (FP) PO SCH (21:13)
[2016-11-14] MEDS: NICOTINE POLACRILEX 2 MG GUM BUC PRN ×6 (07:23→21:44)
[2016-11-14] MEDS: NICOTINE 14 MG/24 HOURS TOPICAL PATCH TD SCH (09:48)
[2016-11-14] MEDS: BUPRENORPHINE/NALOXONE 8 MG/2 MG FILM PACKET SL SCH (09:48)
[2016-11-14] MEDS: PRENATAL VITAMINS W/ FOLIC ACID TABLET (FP) PO SCH (09:48)
[2016-11-14] MEDS: THIAMINE HCL 100 MG TABLET (FP) PO SCH (21:45)
[2016-11-15] MEDS: NICOTINE POLACRILEX 2 MG GUM BUC PRN ×6 (08:43→21:25)
[2016-11-15] MEDS: NICOTINE 14 MG/24 HOURS TOPICAL PATCH TD SCH (10:06)
[2016-11-15] MEDS: PRENATAL VITAMINS W/ FOLIC ACID TABLET (FP) PO SCH (10:06)
[2016-11-15] MEDS: BUPRENORPHINE/NALOXONE 8 MG/2 MG FILM PACKET SL SCH (10:06)
[2016-11-15] MEDS: THIAMINE HCL 100 MG TABLET (FP) PO SCH (21:25)
[2016-11-16] MEDS: PRENATAL VITAMINS W/ FOLIC ACID TABLET (FP) PO SCH (10:00)
[2016-11-16] MEDS: NICOTINE 14 MG/24 HOURS TOPICAL PATCH TD SCH (10:00)
[2016-11-16] MEDS: BUPRENORPHINE/NALOXONE 8 MG/2 MG FILM PACKET SL SCH (10:01)
[2016-11-16] MEDS: NICOTINE POLACRILEX 2 MG GUM BUC PRN ×4 (10:13→17:49)
[2016-11-16] MEDS: THIAMINE HCL 100 MG TABLET (FP) PO SCH (22:12)
[2016-11-17] MEDS: NICOTINE POLACRILEX 2 MG GUM BUC PRN (06:34)
[2016-11-17 06:46] VITALS: BP 141/83; PULSE 69; TEMP 97.6
[2016-11-17] MEDS: BUPRENORPHINE/NALOXONE 8 MG/2 MG FILM PACKET SL SCH (09:20)
[2016-11-17] MEDS: PRENATAL VITAMINS W/ FOLIC ACID TABLET (FP) PO SCH (09:54)
[2016-11-17] MEDS: NICOTINE 14 MG/24 HOURS TOPICAL PATCH TD SCH (09:54)
--- NOTE | 2016-11-19 14:43 | HP ---
Inpatient Rehab Admission - Initial Determination Are CD services needed?: Yes Free of communicable disease: Yes Not in need of hospitalization: Yes - Rehab Admission Criteria Previous failed treatment: Yes Patient is meeting Inpatient Rehab admission criteria:: Yes
== END 2016-11-17 09:28 | disposition left against medical advice (07) | DRG 770 ==
LOC: YASAS 11:52 → Y3W 11:56
PROVIDERS: ADMIT Psychiatry & Neurology Psychiatry; ATTEND Psychiatry & Neurology Psychiatry
PROC: HZ42ZZZ Group Counseling for Substance Abuse Treatment, Cognitive-Behavioral (ICD-10-PCS; principal; 2016-11-08)
DX: F11.20 Opioid dependence, uncomplicated (principal); F10.20 Alcohol dependence, uncomplicated; F17.213 Nicotine dependence, cigarettes, with withdrawal; F19.24 Other psychoactive substance dependence with psychoactive substance-induced mood disorder; F19.282 Other psychoactive substance dependence with psychoactive substance-induced sleep disorder; L03.90 Cellulitis, unspecified; B18.2 Chronic viral hepatitis C